=== PATIENT | female | born 1955 | race Caucasian/White ===

== ENCOUNTER → 2017-04-04 | Outpatient (CLI) | payer OTHER | LOC: FIMAGING 07:44 | PROVIDERS: ATTEND Family Medicine | DX: Z12.31 Encounter for screening mammogram for malignant neoplasm of breast (principal); Z80.3 Family history of malignant neoplasm of breast | CPT/HCPCS: G0202 ==

== ENCOUNTER → 2017-07-07 | Outpatient (CLI) | payer BC | LOC: FIMAGING 09:28 | PROVIDERS: ATTEND Family Medicine | DX: Z13.820 Encounter for screening for osteoporosis (principal); M85.89 Other specified disorders of bone density and structure, multiple sites; Z78.0 Asymptomatic menopausal state ==

== ENCOUNTER 2017-07-21 11:55 | Emergency (ER) | payer BC ==
[2017-07-21] MEDS ORDERED: methylPREDNISolone SOD SUCC 125 MG/2 ML VIAL IVP ONE (12:43)
--- NOTE | 2017-07-21 13:03 | EDPHY ---
H & P Time Seen by Provider: 07/21/17 12:33 HPI/ROS: CHIEF COMPLAINT: Shortness of breath HISTORY OF PRESENT ILLNESS: Patient is a 61-year-old female who presents emergency department with shortness of breath. She states over the past 5 days she has gradually had increased difficulty with breathing. She was on a ski vacation and skied in the extreme cold. She feels this may be related to the start of her symptoms. She feels as though the obstruction is in her "windpipe. "She took her sister's inhaler on multiple occasions with no relief. Her symptoms are markedly worse today. She reports having laryngitis a couple of weeks ago but her symptoms resolved. No other sick exposures. REVIEW OF SYSTEMS: My complete review of systems is negative except as mentioned in the HPI. Past Medical/Surgical History: Negative Past surgical history: Tonsillectomy, left wrist Smoking Status: Never smoked Physical Exam: Vitals noted GENERAL: Mild acute distress, alert. Increased work of breathing HEENT: Eyes normal to inspection, normal pharynx, no signs of dehydration. Uvula midline. NECK: No thyromegaly, no lymphadenopathy, supple. No palpable mass. No stridor, but the patient does have coarse airway sounds with breathing RESPIRATORY: Clear to auscultation bilaterally, no rales, rhonchi or wheezing. CVS: Regular rate and rhythm, no rubs, murmurs, or gallops. ABDOMEN: Soft, nontender, nondistended, no organomegaly. BACK: Normal to inspection, no CVA tenderness. SKIN: Normal color, no rash, warm, dry. No pallor. EXTREMITIES: No pedal edema, no calf tenderness, no Homans sign or cords, no joint swelling. NEURO/PSYCH: Alert and oriented x3, normal mood and affect, normal motor sensory exam. Constitutional: Initial Vital Signs Temperature (C) 36.8 C 07/21/17 12:04 Heart Rate 69 07/21/17 12:04 Respiratory Rate 22 H 07/21/17 12:04 Blood Pressure 143/82 H 07/21/17 12:04 O2 Sat (%) 95 07/21/17 12:04 O2 Delivery Mode Room Air O2 (L/minute) 2 Allergies/Adverse Reactions: Penicillins Allergy (Verified 07/21/17 12:02) Home Medications: Medication Instructions Recorded NK [No Known Home Meds] 07/21/17 Medical Decision Making ED Course/Re-evaluation: In the emergency department I discussed possible etiologies with the patient. I answered all her questions. IV was placed. She was given Solu-Medrol 125 mg IV. I discussed the case with Dr. Gonzalez from ENT. She will come to the emergency department scope the patient. I reviewed the patient's chest x-ray from earlier. It was reported as normal. CBC and chemistry were unremarkable. I reviewed the chest x-ray from her previous evaluation it was negative. I rechecked the patient after receiving the steroid. Her symptoms were still present but improved. Dr. Gonzalez came to the emergency department evaluated the patient. She stated that the patient's upper airway was clear. She did noticed that there was yellow discharge in the patient's trachea. She felt this looks more consistent with a tracheitis than upper airway issue. I discussed the results with the patient. I answered all her questions. I paged Dr. Morris from pulmonology. Dr. Morris will come to the emergency department to evaluate the patient. The patient last ate at 7:00 a.m.. I discussed this plan with the patient and answered all her questions. Dr. Morris scope the patient. He felt there was significant inflammation in the trachea. He recommended that the patient be discharged home. He wrote a prescription for both steroid and Levaquin. He will see the patient in his office next week. She will return sooner if her symptoms worsen. I time discharge patient was doing well. She is given warnings prior to leaving. She will return with worsening symptoms. Differential Diagnosis: My differential includes but is not limited to mass, malignancy, laryngeal spasm , vocal cord spasm, epiglottitis, tracheitis, pharyngitis - Data Points Laboratory Results: Laboratory Results 07/21/17 12:03 07/21/17 12:03 07/21/17 07/21/17 12:03 12:03 WBC 5.47 10^3/uL 10^3/uL (3.80-9.50) RBC 5.25 10^6/uL 10^6/uL (4.18-5.33) Hgb 16.0 g/dL g/dL (12.6-16.3) Hct 46.4 % % (38.0-47.0) MCV 88.4 fL fL (81.5-99.8) MCH 30.5 pg pg (27.9-34.1) MCHC 34.5 g/dL g/dL (32.4-36.7) RDW 12.6 % % (11.5-15.2) Plt Count 172 10^3/uL 10^3/uL (150-400) MPV 9.6 fL fL (8.7-11.7) Neut % (Auto) 62.1 % % (39.3-74.2) Lymph % (Auto) 29.6 % % (15.0-45.0) Wirt % (Auto) 5.9 % % (4.5-13.0) Eos % (Auto) 1.3 % % (0.6-7.6) Baso % (Auto) 0.9 % % (0.3-1.7) Nucleat RBC Rel Count 0.0 % % (0.0-0.2) Absolute Neuts (auto) 3.40 10^3/uL 10^3/uL (1.70-6.50) Absolute Lymphs (auto) 1.62 10^3/uL 10^3/uL (1.00-3.00) Absolute Monos (auto) 0.32 10^3/uL 10^3/uL (0.30-0.80) Absolute Eos (auto) 0.07 10^3/uL 10^3/uL (0.03-0.40) Absolute Basos (auto) 0.05 10^3/uL 10^3/uL (0.02-0.10) Absolute Nucleated RBC 0.00 10^3/uL 10^3/uL (0-0.01) Immature Gran % 0.2 % % (0.0-1.1) Immature Gran # 0.01 10^3/uL 10^3/uL (0.00-0.10) Sodium 143 mEq/L mEq/L (135-145) Potassium 3.9 mEq/L mEq/L (3.5-5.2) Chloride 108 mEq/L mEq/L (97-110) Carbon Dioxide 22 mEq/l mEq/l (22-31) Anion Gap 13 mEq/L mEq/L (8-16) BUN 13 mg/dL mg/dL (7-23) Creatinine 0.7 mg/dL mg/dL (0.6-1.0) Estimated GFR > 60 Glucose 112 mg/dL H mg/dL (70-100) Calcium 9.7 mg/dL mg/dL (8.5-10.4) Medications Given: Discontinued Medications Fentanyl (Sublimaze) 100 mcg IVP EDNOW ONE Stop: 07/21/17 14:39 Last Admin: 07/21/17 14:42 Dose: 100 mcg Methylprednisolone Sodium Succinate (Solu-Medrol) 125 mg IVP EDNOW ONE Stop: 07/21/17 12:44 Last Admin: 07/21/17 12:45 Dose: 125 mg Midazolam HCl (Versed) 2 mg IVP EDNOW ONE Stop: 07/21/17 14:39 Last Admin: 07/21/17 14:42 Dose: 1 mg Ondansetron HCl (Zofran) 4 mg IVP EDNOW ONE Stop: 07/21/17 14:47 Last Admin: 07/21/17 14:46 Dose: 4 mg Departure - Departure Disposition: Home, Routine, Self-Care Clinical Impression: Tracheitis Condition: Good Instructions: Acute Bronchitis (ED), Additional Information Additional Instructions: You been diagnosed with tracheitis. Take your antibiotics as directed. Return to the emergency department sooner if you symptoms worsen. Referrals: Prashant Morris MD [Medical Doctor] - 07/26/17 2:15 pm ( ) Claudia Treadwell MD [Primary Care Provider] - As per Instructions
[2017-07-21 13:08] LABS: PLATELET COUNT 172 10^3/uL (150-400)
--- NOTE | 2017-07-21 14:08 | GHP ---
[f rep st] PREOP HISTORY AND PHYSICAL DATE OF ADMISSION: 07/21/2017 Patient is a 61-year-old female, who presents to the emergency room for increasing shortness of breat h over the past 3 days. She was recently up skiing and noted it was increasingly difficult to breath e. She tried a family member's albuterol without any relief. Patient is not stridulous, but definit laura having difficulty breathing. She states that she had 2 days of laryngitis 2 weeks ago, but other suarez felt well. Patient points to the upper tracheal area just below the level of the larynx where s he feels the tightness. She has no fevers. No problems with her nose or ears. PAST MEDICAL HISTORY: Negative. PAST SURGICAL HISTORY: Tonsillectomy and left wrist. FAMILY HISTORY: Noncontributory. PHYSICAL EXAMINATION: GENERAL: Patient is alert and orientated, in no acute distress. HEAD: Atrau matic, normocephalic. NOSE: Clear. OROPHARYNX: Clear. NECK: Supple. Fiberoptic laryngoscopy pe rformed at bedside reveals laryngeal tissue to be within normal limits. Vocal cords are mobile. The re are no masses or lesions. No acute swelling; however, her upper tracheal area just below the leve l of vocal cords has evidence of yellow-green crusting. ASSESSMENT AND PLAN: Patient with increasing shortness of breath over the past 3 days. They did giv e her dose of prednisone which she has responded very well to, and is breathing much more comfortably at this time. I reviewed the findings with the emergency room doctor, and they will treat her for t racheitis infection. Please let us know if we can be of any further assistance. /[id number]/MODL
[2017-07-21] MEDS ORDERED: fentaNYL 100 MCG/2 ML INJ IVP ONE (14:38)
[2017-07-21] MEDS ORDERED: MIDAZOLAM 2 MG/2 ML VIAL IVP ONE (14:38)
[2017-07-21] MEDS ORDERED: MIDAZOLAM 2 MG/2 ML VIAL ONE (14:40)
[2017-07-21] MEDS ORDERED: ONDANSETRON 4 MG/2 ML VIAL ONE (14:45)
[2017-07-21] MEDS ORDERED: ONDANSETRON 4 MG/2 ML VIAL IVP ONE (14:46)
[2017-07-21 15:53] VITALS: BP 125/78; PULSE 87; RESP 15; TEMP 97.9; O2SAT 96
--- NOTE | 2017-07-21 16:14 | GCON ---
[f rep st] CONSULTATION PULMONARY CONSULTATION DATE OF CONSULTATION: 07/21/2017 REFERRING PHYSICIAN: eTa Valentine MD REASON FOR REFERRAL: Evaluation and management of dyspnea and tracheal abnormality. HISTORY: The patient is a 61-year-old woman who was in her usual state of excellent health when she went skiing 4 days ago. She had no limitations at that time, but by the next day she started noticin g increased dyspnea as well as a cough that was mostly nonproductive. This shortness of breath has p ersisted and has gotten worse over the last several days. She went to her PCP today and got a chest x-ray, which was unremarkable. Because the shortness of breath was getting worse, she presented to [facility] emergency department. She reports that the shortness of breath is a difficulty in getting air in. She also reports a stridulous sound as well. She had laryngitis about 2 weeks ago, but that resolv ed within about 2-3 days. She denies any fevers as part of her current illness. She has also not hernadez d any wheezing. She tried her sister's albuterol inhaler and did not find it helpful. She has cough ed up some small flecks of hard dark matter. In the emergency department, she was seen by ENT, who d id a scope and found that she did not have any laryngeal/pharyngeal abnormalities. They did however see some narrowing in the trachea, so I was consulted. The patient denies reflux or chronic postnasa l drip. She has not been intubated since she was a teenager. She denies a prior history of similar symptoms. PAST MEDICAL HISTORY: Negative. MEDICATIONS: None. ALLERGIES: Penicillin. SOCIAL HISTORY: The patient does not smoke. FAMILY HISTORY: Unremarkable. REVIEW OF SYSTEMS: The 10-point review of systems adds nothing to the history of present illness. PHYSICAL EXAMINATION: GENERAL: The patient is awake and alert. She is in no acute distress. She h as soft audible stridor. VITAL SIGNS: Her blood pressure is 128/78 with a heart rate of 81. She is afebrile. Oxygen saturations are 99% on 2 L and were 95% on room air on admission. HEENT: Normoce phalic and atraumatic. No icterus. NECK: No adenopathy. Trachea is midline. CHEST: She has some soft stridor. Lung jean are clear. She has no respiratory distress, and her respiratory rate is 18. CARDIAC: Regular rate and rhythm without murmur. ABDOMEN: Soft, nontender. Bowel sounds are present. EXTREMITIES: No clubbing, cyanosis, or edema. DIAGNOSTICS: Chest x-ray is normal. I performed a bronchoscopy (dictated separately) where I found circumferential inflammation of the upper trachea with adherent dried mucus. I was able to briefly v isualize below this and did not see any significant inflammation. There were 2-3 cm of inflammation, and I estimate that the trachea was approximately 60% narrowed. There was no bleeding/hemorrhage. ASSESSMENT: Tracheitis. The patient has about a 4-day history of symptoms of cough and shortness of breath. Possibilities include a viral or bacterial tracheitis. Reflux-induced tracheitis is also p ossible, although the patient denies a history of reflux clinically. Malignancy is also possible, al though history argues against this. The patient clinically is fairly comfortable now, although she d oes continue to have soft audible stridor. RECOMMENDATIONS: Treat tracheitis empirically with antibiotics and steroids. I will use Levaquin be cause she is allergic to penicillins. She has received steroids here in the emergency department, an d I will prescribe a prednisone taper of 40 mg twice daily for 4 days then 20 mg twice daily for 4 da ys. I have asked the patient to start a proton pump inhibitor twice daily. I will see her in the of bay in 5 days. If she is not better, I will schedule a repeat bronchoscopy in the endoscopy suite s o I can get a better look and consider biopsies. If she is clinically better, I will probably delay the repeat bronchoscopy for a few weeks. If the patient worsens clinically with increased dyspnea, s he is to report directly to the emergency department for evaluation and admission. /[id number]/MODL
--- NOTE | 2017-07-21 18:44 | GPN ---
[f rep st] PROCEDURE NOTE DATE OF PROCEDURE: 07/21/2017 PROCEDURE: Flexible fiberoptic bronchoscopy. REASON FOR THE PROCEDURE: Dyspnea, stridor, abnormal laryngoscopy. PROCEDURE NOTE: The risks and benefits of the procedure were explained to the patient and her family , who agreed to proceed. The entire procedure was performed in the emergency department. It was my assessment that there was no risk of airborne infection from the procedure. After an appropriate lori e-out, the patient was given 100 mcg of fentanyl and 1 mg of Versed. A bite block was placed between her teeth. 5 cc of 1% lidocaine was used topically for anesthesia. The bronchoscope was advanced t hrough the bite block into the vocal cords, which moved normally. I could see narrowing of the upper trachea. I was able to advance the bronchoscope through the vocal cords, where I encountered circum ferential inflammation and tracheal thickening with adherent dried mucus. I was able to pass the bro nchoscope briefly past this and the obstruction was several centimeters. The distal airways were unr emarkable. It was my assessment that the airway was approximately 60% narrowed. There was no bleedi ng and no discrete exophytic lesions. No specimens were taken. The patient tolerated the procedure well, with good saturations throughout. /[id number]/MODL
== END 2017-07-21 15:53 | disposition home or self-care (01) ==
LOC: EDUNIT#
DX: J04.10 Acute tracheitis without obstruction (principal)
CPT/HCPCS: 96374; J2250; J2405; J2930; J3010

== ENCOUNTER → 2017-07-21 | Outpatient (CLI) | payer BC | LOC: FIMAGING 09:26 | PROVIDERS: ATTEND Family Medicine | DX: R05 Cough (principal); R06.1 Stridor; R06.2 Wheezing ==

== ENCOUNTER 2017-08-16 13:04 | Day surgery (SDC) | payer BC ==
[2017-08-16] MEDS ORDERED: LIDOCAINE 1% 2 ML INJ ID PRN (13:22)
[2017-08-16] MEDS ORDERED: NS 500 ML IV ONE (13:22)
[2017-08-16 13:42] VITALS: PULSE 75; RESP 16; TEMP 99
[2017-08-16] MEDS ORDERED: MIDAZOLAM 2 MG/2 ML VIAL ONE ×2 (14:15)
[2017-08-16] MEDS ORDERED: fentaNYL 100 MCG/2 ML INJ ONE (14:15)
[2017-08-16] MEDS ORDERED: BENZOCAINE UNIT DOSE SPRAY HURRICAINE MM ONE (14:44)
[2017-08-16] MEDS ORDERED: fentaNYL 100 MCG/2 ML INJ IVP ONE (14:44)
[2017-08-16] MEDS ORDERED: MIDAZOLAM 2 MG/2 ML VIAL IVP ONE (14:44)
[2017-08-16] MEDS ORDERED: LIDOCAINE 2% JELLY 5 ML TUBE TP ONE (14:46)
--- NOTE | 2017-08-16 15:02 | PDHPUP ---
History & Physical Update H&P update statement: This history and physical update is based on an assessment of the patient which was completed after admission or registration (within 24 hours), but prior to the surgery/procedure. H&P update: H&P reviewed & patient examined, no change in patient's condition since H&P completed
--- NOTE | 2017-08-16 15:02 | PDPROPOC ---
Sedation Plan of Care Sedation Plan of Care: vital signs stable, mental status noted, patient educated of risks, benefits, alternatives, patient can tolerate sedation ASA Classification: ASA 1 Planned drugs: fentanyl, midazolam Mallampati Score: Class 2 Mallampati Reference Image: Patient passed 3-3-2 rule?: Yes
[2017-08-16 15:43] VITALS: BP 134/74; O2SAT 97
== END 2017-08-16 15:43 | disposition home or self-care (01) ==
LOC: FSGY 13:04
PROVIDERS: ATTEND Internal Medicine Critical Care Medicine
PROC: 0BJ08ZZ Inspection of Tracheobronchial Tree, Via Natural or Artificial Opening Endoscopic (ICD-10-PCS; principal; 2017-08-16 14:00)
DX: J04.10 Acute tracheitis without obstruction (principal); E78.5 Hyperlipidemia, unspecified; Z88.0 Allergy status to penicillin
CPT/HCPCS: J2250; J3010

== ENCOUNTER → 2018-04-05 | Outpatient (CLI) | payer BC | LOC: FIMAGING 07:57 | PROVIDERS: ATTEND Family Medicine | DX: Z12.31 Encounter for screening mammogram for malignant neoplasm of breast (principal) ==